=== PATIENT | male | born 1975 | race Caucasian/White ===

== ENCOUNTER 2023-01-06 21:02 | Emergency (ER) | payer SELFPAY ==
[2023-01-06] MEDS ORDERED: EPINEPHrine 1 MG/10 ML SYR IV ONE (21:03)
[2023-01-06] MEDS ORDERED: ATROPINE SULF 1 MG/10 ML SYR IV ONE (21:03)
[2023-01-06] MEDS ORDERED: Calcium Chloride 10% INJ SYR IV ONE (21:03)
--- NOTE | 2023-01-07 01:35 | ER ---
Nurse's Notes [facility] Name: Balbir Oconnor Age: 47 yrs Sex: Male : 1975 Arrival Date: 01/06/2023 Time: 21:02 Bed 2 Private MD: Diagnosis: Cardiopulmonary arrest Presentation: 01/06 20:55 Chief complaint: EMS states: EMS was called for a seizure. Pt was at a restaurant, jb4 bystanders saw him fall backwards, they thought he had a seizure. Upon EMS arrival, CPR was being administered. 3 shocks were delivered, no meds were given. CPR was being administered for about 25 minutes prior to EMS arrival. 20:55 Initial Sepsis Screen:. Onset of symptoms was January 06, 2023. Transition of care: jb4 patient was not received from another setting of care. 20:55 Method Of Arrival: EMS: [facility] jb4 20:55 Acuity: MANPREET 1 jb4 20:55 Care prior to arrival: Oral intubation, 7.5 cm. Activity prior to arrival: seizure, vc1 unresponsive. Triage Assessment: 20:55 General: Behavior is unresponsive. Neuro: Level of Consciousness is unresponsive, jb4 Pupils are fixed, dilated. Cardiovascular: Rhythm is asystole. Respiratory: Airway via oral intubation EMS reports 7.5 ET tube, 20 at the teeth. Historical: - Allergies: 21:18 Unable to obtain; jb4 - Home Meds: 21:18 Unable to obtain [Active]; jb4 - PMHx: 21:18 Unable to Obtain; jb4 - PSHx: 21:18 Unable to Obtain; jb4 - Family history:: not pertinent, . - Unable to obtain history due to: patient is on ventilator. Assessment: 21:06 Reassessment: Code called by Dr. Linares at 2105. jb4 21:06 Reassessment: CPR continued after pt arrival to ER, Intubated by EMS 7.5 ET tube 20 \T\ jb4 the teeth, initial round of epi and bicarb given, pulse check done. Pt is in Asystole(2058). Compressions resumed, atropine given, pulse check. Pt is in asystole. Compressions resumed, epi given, Pulse check. Pt in PEA (2102). Compressions resumed. Bicarb given, epi given, Pulse check. No pulse, provider states pt is in an agonal rhythm. Code called and pt pronounced by Dr. Linares \T\ 2105. 21:58 Reassessment: [employer] contacted. Spoke with Cinthia Yoandy. Case # [id number]. [facility] Informed life jaylene will call us back at 2330 to see if any family has arrived and if ME has arrived. 22:23 Reassessment: Next of kin, Mother, Sowmya Tripp, [phone] Sister, Yenifer Oconnor, vc1 [phone]. 01/07 01:33 Reassessment: Undertaker left prior to signing release form. [facility] department reports that the under takers name was Lazaro, pt was taken to [facility]. Vital Signs: 01/06 20:55 Pulse 0; 4 ED Course: 20:55 Arm band placed on left wrist. vc1 20:57 Inserted saline lock: 18 gauge in right antecubital area, using aseptic technique. jb4 21:05 Patient arrived in ED. sb4 21:05 Subhash Linares MD is Attending Physician. rt 21:14 Subhash Linares MD is Pronouncing Provider. rt 21:18 Triage completed. jb4 21:18 Police notified at 20:[address] [place] [employer] [facility] advised to notify the department from the [address] patient came from. 22:20 Odessa Seth, RN is Primary Nurse. kd3 Administered Medications: 20:57 Drug: EPINEPHrine (PF) IV 1:1,000 1 mg Route: IV; Rate: bolus; Site: right antecubital; jb4 20:57 Drug: Sodium Bicarbonate IVP 1 amp Route: IVP; Site: right antecubital; jb4 20:58 Drug: Sodium Bicarbonate IVP 1 amp Route: IVP; Site: right antecubital; jb4 20:59 Drug: Calcium Chloride IVP 1 grams Route: IVP; Site: right antecubital; jb4 21:00 Drug: Atropine IVP 1 mg Route: IVP; Site: right antecubital; jb4 21:02 Drug: EPINEPHrine (PF) IV 1:1,000 1 mg Route: IV; Rate: bolus; Site: right antecubital; jb4 21:04 Drug: EPINEPHrine (PF) IV 1:1,000 1 mg Route: IV; Rate: bolus; Site: right antecubital; jb4 21:04 Drug: Sodium Bicarbonate IVP 1 amp Route: IVP; Site: right antecubital; jb4 Outcome: 01/07 01:35 Patient left the ED. jb4 Signatures: Francois Torres RN RN jb4 Carlos A Sheyla [facility] Odessa Seth RN RN kd3 Jodi Sims RN RN vc1 Katherine Barrett PA-C PAGlendy [email or web address] Subhash Linares MD MD rt Corrections: (The following items were deleted from the chart) 01/06 21:22 21:18 Police notified at 20:19 [place] [employer] [facility] advised to notify the department from [facility] the city the patient came from [facility] : 21:00 Inserted saline lock: 18 gauge in right antecubital area, using aseptic jb4 technique. jb4 22:12 21:06 Reassessment: CPR continued after initial round of epi and bicarb given, pulse jb4 check done. Pt is in Asystole(2058). Compressions resumed, atropine given, pulse check. Pt is in asystole. Compressions resumed, epi given, Pulse check. Pt in PEA (2102). Compressions resumed. Bicarb given, epi given, Pulse check. No pulse, provider states pt is in an agonal rhythm. Code called and pt pronounced by Dr. Linares \T\ 2105. jb4
--- NOTE | 2023-01-07 01:35 | EDPHYS ---
Physician Documentation [facility] Name: Balbir Oconnor Age: 47 yrs Sex: Male : 1975 Arrival Date: 01/06/2023 Time: 21:02 Bed 2 Private MD: ED Physician Subhash Linares HPI: 01/06 21:28 This 47 yrs old Male presents to ER via EMS with complaints of Cardiac arrest. rt 21:40 Patient presents to the ED with cardiopulmonary arrest. Patient was reportedly at a rt bar, when he fell backwards hitting his head. CPR was started by bystanders. EMS arrived about 10 minutes later, found his initial rhythm to be asystole. They ministered 2 shock, placed the patient on a Martinez device, brought him to the ED for further treatment. No further history could be obtained. His symptoms are severe in severity. Patient was intubated prior to arrival. Historical: - Allergies: 21:18 Unable to obtain; jb4 - Home Meds: 21:18 Unable to obtain [Active]; jb4 - PMHx: 21:18 Unable to Obtain; jb4 - PSHx: 21:18 Unable to Obtain; jb4 - Family history:: not pertinent, . - Unable to obtain history due to: patient is on ventilator. ROS: 21:40 Unable to obtain ROS due to Unresponsive patient. rt Exam: 22:12 Constitutional: The patient appears Apneic, pulseless, unresponsive rt 22:12 Head/face: 2 cm laceration above the right eyebrow, no other external evidence of trauma. 22:12 Eyes: Fixed, dilated pupils. 22:12 ENT: ET tube in place. 22:12 Chest/axilla: Symmetrical chest rise, no external evidence of trauma, crepitus. 22:12 Cardiovascular: Pulseless. 22:12 Respiratory: Ventilated breath sounds, equal bilateral. 22:12 Abdomen/GI: Nondistended. 22:12 Musculoskeletal/extremity: No external evidence of trauma. 22:12 Skin: Pale, cool, mottled. 22:12 Neuro: GCS 3 T. Vital Signs: 20:55 Pulse 0; jb4 Procedures: 22:12 CPR: See CPR flow sheet. Initial patient assessment: unresponsive, no respiratory rt effort, intubated, The presenting cardiac rhythm is asystole. the patient was intubated prior to arrival, Compressions: began prior to arrival. Meds given: See Meds list. Epinephrine despite ED evaluation and treatment, the patient . No further perfusing rhythm was obtained despite multiple medications, continued compressions. Patient did have an agonal rhythm with a rate less than 30 at 1 point, no perfusing rhythm was reobtained. Patient showed initial signs of severe anoxic brain injury with fixed dilated pupils, was reportedly in asystole for greater than 20 minutes, further resuscitative efforts were deemed to be futile as there is no reasonable chance for meaningful neurologic recovery. Time of was called.. Performed Intraosseous line placement. RAHEEM was used to place a needle in the right proximal tibia, good return of marrow, good flow with flush. No complications noted.. MDM: 21:05 Patient medically screened. rt 22:12 Differential diagnosis: arrythmia, cardiac arrest, respiratory arrest, traumatic rt injury, overdose, asphyxiation. Data reviewed: nurses notes, EMS record. I considered the following discharge prescriptions or medication management in the emergency department Medications were administered in the Emergency Department. See MAR. Test considered but Not performed: Other Details Patient never regained stability to obtain any testing to include imaging, labs.. Administered Medications: 20:57 Drug: EPINEPHrine (PF) IV 1:1,000 1 mg Route: IV; Rate: bolus; Site: right antecubital; jb4 20:57 Drug: Sodium Bicarbonate IVP 1 amp Route: IVP; Site: right antecubital; jb4 20:58 Drug: Sodium Bicarbonate IVP 1 amp Route: IVP; Site: right antecubital; jb4 20:59 Drug: Calcium Chloride IVP 1 grams Route: IVP; Site: right antecubital; jb4 21:00 Drug: Atropine IVP 1 mg Route: IVP; Site: right antecubital; jb4 21:02 Drug: EPINEPHrine (PF) IV 1:1,000 1 mg Route: IV; Rate: bolus; Site: right antecubital; jb4 21:04 Drug: EPINEPHrine (PF) IV 1:1,000 1 mg Route: IV; Rate: bolus; Site: right antecubital; jb4 21:04 Drug: Sodium Bicarbonate IVP 1 amp Route: IVP; Site: right antecubital; jb4 Disposition: 22:12 Critical Care:. rt Disposition Summary: 01/06/23 21:14 Patient Location: [facility] rt Pronouncing Physician: Subhash Linares rt Time of : 21:06 01/06/2023 rt Diagnosis - Cardiopulmonary arrest rt Critical care time excluding procedures: 22:12 Critical care time: Bedside Care: 35 minutes. Total time: 35 minutes rt Signatures: Francois Torres RN RN jb4 Subhash Linares MD MD rt
== END 2023-01-07 01:35 ==
LOC: ER 21:02
DX: I46.9 Cardiac arrest, cause unspecified (principal)
CPT/HCPCS: 82947; 92950; 96374; 96375; 99285; J0171; J0461